=== PATIENT | female | born 1955 | race Caucasian/White ===

== ENCOUNTER 2017-02-12 20:30 | Emergency (ER) | payer OTHER ==
[2017-02-12 21:16] VITALS: RESP 18
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
[2017-02-12 21:51] VITALS: BP 174/62; PULSE 57; TEMP 97.4
== END 2017-02-12 21:57 | disposition home or self-care (01) ==
LOC: EC 20:30
DX: Z76.0 Encounter for issue of repeat prescription (principal); F41.9 Anxiety disorder, unspecified; I48.91 Unspecified atrial fibrillation; E78.5 Hyperlipidemia, unspecified; I10 Essential (primary) hypertension; Z88.0 Allergy status to penicillin; Z88.6 Allergy status to analgesic agent; Z88.8 Allergy status to other drugs, medicaments and biological substances; Z79.82 Long term (current) use of aspirin; Z79.899 Other long term (current) drug therapy
CPT/HCPCS: 99281